=== PATIENT | male | born 1950 | race Caucasian/White ===

== ENCOUNTER → 2016-08-04 | Outpatient (CLI) | payer OTHER ==
[~2016-08-04] MED LIST: CLTP PO; DBT/5 PO; DOCU-94 PO; ESCI10TA17 PO; FIBER PO; GABA-113 PO; GLC500 PO; LISI40TA PO; METO25TA3 PO; NAPR-201 PO; SIMV20TA2 PO; SIMV40TA2 PO; [UNRECOGNIZED DRUG - OTHER]
[2016-08-04 12:47] LABS: BASO % 0.6 %; BASO ABS # 0.06 K/uL (0-0.2); COMPLETE YES; EOS % 2.9 %; IG% 0.6 %; LYMPH % 23.7 %; LYMPH ABS # 2.39 K/uL (1.2-3.4); MEAN CELL VOLUME 90.2 fL (80-100); MEAN CORPUSCULAR HEMOGLOBIN 32.5 pg (25-34); MEAN CORPUSCULAR HGB CONC 36.1 g/dl (32-36); MEAN PLATELET VOLUME 10.1 fL (7.4-10.4); MONO % 7.1 %; NEUT % 65.1 %; PLATELET COUNT 288 K/uL (130-400)
[2016-08-04 12:57] LABS: ALT/SGPT 56 U/L (12-78); AST/SGOT 15 U/L (15-37); BLOOD UREA NITROGEN 17 mg/dl (7-18); CALCIUM 9.2 mg/dl (8.5-10.1); CARBON DIOXIDE 27 mmol/L (21-32); CHLORIDE 101 mmol/L (98-107); GLUCOSE 330 mg/dl (70-99); POTASSIUM 4.5 mmol/L (3.5-5.1); SODIUM 137 mmol/L (136-145)
[2016-08-04 13:03] LABS: ALB/GLOB RATIO 1.1 (0.9-2); ALKALINE PHOSPHATASE 55 U/L (45-117); CHOLESTEROL 156 mg/dl (0-200); HDL CHOLESTEROL 31 mg/dl; LDL CHOLESTEROL CALCULATED 72 mg/dl; TRIGLYCERIDES 267 mg/dl (0-150); VERY LOW DENSITY LIPOPROT CALC 53 mg/dl
[2016-08-04 13:10] LABS: BETA-HYDROXYBUTYRATE 3.03 mg/dL (0.2-2.81)
[2016-08-04 13:26] LABS: ESTIMATED AVERAGE GLUCOSE 240 mg/dl; HA1C FLAG Normal (Normal)
== END | disposition home or self-care (01) ==
LOC: C.LABBFT 09:46
PROVIDERS: ATTEND Physician Assistant Medical
DX: I10 Essential (primary) hypertension (principal)

== ENCOUNTER → 2016-09-03 | Outpatient (CLI) | payer OTHER ==
[2016-09-03 09:06] VITALS: BP 139/84; PULSE 56; TEMP 36.6; O2SAT 97
--- NOTE | 2016-09-03 10:49 | Radiation Oncology Follow-Up ---
Radiation Oncology Follow-Up Date of Visit Sep 03, 2016. Reason For Visit Annual follow-up Radiation Completion Date finished IMRT / IGRT on 09-19-2007 , seed implant on 06-23-2008 Diagnosis (1) Prostate cancer Status: Resolved Onset Date: 2007 Stage: ll (B biopsy stage) Permanent Comment: Adenocarcinoma prostate, clinical stage TIc, presenting PSA 3.9 Biopsy stage TIIb, Pixley grade 3+3 and 3+4 Hormonal suppression 05/17/2007 through December 2007 Status post seed implant with cesium 131 on 06/23/2008 status post completion of IMRT/IGRT completed 09/19/2007 received 4500 cGy Last Edited By: Lien Cooper on Dec 04, 2014 15:44 Interim History He has been doing well over this past year. He completed an AUA score sheet. He gave a score of 1. An expanded prostate cancer index composite for clinical practice was completed and a score of 0 of 12 was given for urinary incontinence symptoms. A score of 0 of 12 and urinary irritation symptoms. A score of 0 of 12 and bowel symptoms. Score of 0 of 12 and hormonal vitality symptoms. Sexual section was not completed. His score is therefore 0 of 48. His forms were completed by the nurse reading the questions and him answering. The patient does not read. He does not require any medication to help with urination. Allergies Coded Allergies: No Known Allergies (Unverified , 10/15/10) Home Medications Scheduled Calcium/Vitamin D (Caltrate 600 Plus *), 2 TAB PO BID Docusate Sodium (Colace), 1 CAP PO DAILY Escitalopram (Lexapro), 10 MG PO DAILY Fiber Laxative (Fiber Laxative), 2 PO BID Gabapentin (Neurontin), 300 MG PO DHS Glyburide (Diabeta), 5 MG PO BID Lisinopril (Prinivil), 40 MG PO DAILY Metformin Hcl (Glucophage *), 1,000 MG PO BID Metoprolol Succ (Toprol Xl) (Toprol-Xl), 25 MG PO BID Naproxen (Naprosyn), 375 MG PO DAILY Simvastatin (Zocor), 40 MG PO QPM Review of Systems Gastrointestinal: Symptoms: WNL Oral: Symptoms: No Problems Respiratory: Symptoms: WNL Urinary: Symptoms: WNL Skin: Symptoms: No Problems Physical Exam Vital Signs Date Time Temp Pulse Resp B/P Pulse Ox O2 Delivery O2 Flow Rate FiO2 09/03/16 09:06 36.6 56 18 139/84 97 Pain: Side: Bilateral Patient Pain Scale: 0 - 10 Initial Pain Intensity: 0.0 Fatigue: None General Appearance: no apparent distress Eyes: normal inspection, EOMI ENT: normal ENT inspection Respiratory/Chest: lungs clear, no respiratory distress, no accessory muscle use Cardiovascular: regular rate, rhythm, no gallop, no murmur Abdomen: non tender, soft Extremities: no pedal edema Neurologic/Psychiatric: no motor/sensory deficits, alert, normal mood/affect Skin: warm/dry Laboratory Studies Test 08/04/16 09:48 09/03/16 09:18 White Blood Count 10.10 K/uL (4.8-10.8) Red Blood Count 5.10 M/uL (4.7-6.1) Hemoglobin 16.6 g/dL (14.0-18.0) Hematocrit 46.0 % (42-52) Mean Corpuscular Volume 90.2 fL (80-100) Mean Corpuscular Hemoglobin 32.5 pg (25-34) Mean Corpuscular Hemoglobin Concent 36.1 g/dl (32-36) Platelet Count 288 K/uL (130-400) Mean Platelet Volume 10.1 fL (7.4-10.4) Neutrophils (%) (Auto) 65.1 % Lymphocytes (%) (Auto) 23.7 % Monocytes (%) (Auto) 7.1 % Eosinophils (%) (Auto) 2.9 % Basophils (%) (Auto) 0.6 % Neutrophils # (Auto) 6.58 K/uL (1.4-6.5) Lymphocytes # (Auto) 2.39 K/uL (1.2-3.4) Monocytes # (Auto) 0.72 K/uL (0.11-0.59) Eosinophils # (Auto) 0.29 K/uL (0-0.5) Basophils # (Auto) 0.06 K/uL (0-0.2) RDW Standard Deviation 41.6 fL (36.4-46.3) RDW Coefficient of Variation 12.6 % (11.5-14.5) Immature Granulocyte % (Auto) 0.6 % Immature Granulocyte # (Auto) 0.06 K/uL (0.00-0.02) Sodium Level 137 mmol/L (136-145) Potassium Level 4.5 mmol/L (3.5-5.1) Chloride Level 101 mmol/L (98-107) Carbon Dioxide Level 27 mmol/L (21-32) Anion Gap 9.0 mmol/L (3-11) Blood Urea Nitrogen 17 mg/dl (7-18) Creatinine 1.30 mg/dl (0.60-1.40) Estimated GFR () 66.8 Estimated GFR (Non- 57.7 BUN/Creatinine Ratio 13.0 (10-20) Random Glucose 330 mg/dl (70-99) Estimated Average Glucose 240 mg/dl Hemoglobin A1c 10.0 % (4.5-5.6) Calcium Level 9.2 mg/dl (8.5-10.1) Total Bilirubin 0.6 mg/dl (0.2-1) Aspartate Amino Transferase (AST) 15 U/L (15-37) Alanine Aminotransferase (ALT) 56 U/L (12-78) Alkaline Phosphatase 55 U/L (45-117) Total Protein 7.4 gm/dl (6.4-8.2) Albumin 3.8 gm/dl (3.4-5.0) Globulin 3.6 gm/dl (2.5-4.0) Albumin/Globulin Ratio 1.1 (0.9-2) Triglycerides Level 267 mg/dl (0-150) Cholesterol Level 156 mg/dl (0-200) HDL Cholesterol 31 mg/dl LDL Cholesterol, Calculated 72 mg/dl VLDL Cholesterol, Calculated 53 mg/dl Cholesterol/HDL Ratio 5.0 Beta-Hydroxybutyric Acid 3.03 mg/dL (0.2-2.81) Prostate Specific Antigen < 0.010 ng/ml (0.000-4.000) Assessment & Plan Plan: The PSA was obtained today prior to examination. The patient will be notified as to results. He will continue regular follow-up with his primary care physician. He does not follow with urology and will therefore be asked to return to our office in 1 year. He may call if he has the questions or concerns in the interim. Total Time In Follow-Up I spent 20 minutes speaking to the patient performing examination. I spent 15 minutes reviewing information completing this note. Copy To Kristofer Oconnell M.D.
== END | disposition home or self-care (01) ==
LOC: C.ONC 08:53
PROVIDERS: ATTEND Physician Assistant Medical
DX: Z08 Encounter for follow-up examination after completed treatment for malignant neoplasm (principal); Z92.3 Personal history of irradiation; Z85.46 Personal history of malignant neoplasm of prostate

== ENCOUNTER → 2017-01-24 | Outpatient (CLI) | payer OTHER ==
[~2017-01-24] MED LIST changes: -SIMV20TA2 PO; -[UNRECOGNIZED DRUG - OTHER]
[2017-01-24 16:57] LABS: ALT/SGPT 55 U/L (12-78); BLOOD UREA NITROGEN 19 mg/dl (7-18); BUN/CREATININE RATIO 14.8 (10-20); CARBON DIOXIDE 26 mmol/L (21-32); CHLORIDE 104 mmol/L (98-107); CHOLESTEROL 118 mg/dl (0-200); GLUCOSE 196 mg/dl (70-99); POTASSIUM 4.2 mmol/L (3.5-5.1); SODIUM 138 mmol/L (136-145)
[2017-01-24 17:00] LABS: BASO % 0.7 %; BASO ABS # 0.05 K/uL (0-0.2); COMPLETE YES; EOS % 1.6 %; HEMATOCRIT 43.9 % (42-52); IG% 0.4 %; LYMPH % 25.6 %; LYMPH ABS # 1.74 K/uL (1.2-3.4); MEAN CELL VOLUME 89.2 fL (80-100); MEAN CORPUSCULAR HEMOGLOBIN 32.5 pg (25-34); MEAN CORPUSCULAR HGB CONC 36.4 g/dl (32-36); MEAN PLATELET VOLUME 9.6 fL (7.4-10.4); MONO % 18.2 %; NEUT % 53.5 %; PLATELET COUNT 210 K/uL (130-400); RED BLOOD COUNT 4.92 M/uL (4.7-6.1)
[2017-01-24 17:07] LABS: ALKALINE PHOSPHATASE 50 U/L (45-117); AST/SGOT 22 U/L (15-37); CHOLESTEROL/HDL RATIO 3.8; HDL CHOLESTEROL 31 mg/dl; LDL CHOLESTEROL CALCULATED 54 mg/dl; TRIGLYCERIDES 165 mg/dl (0-150); VERY LOW DENSITY LIPOPROT CALC 33 mg/dl
[2017-01-24 17:34] LABS: RATIO 6.9 mcg/mg (0-30.0)
[2017-01-25 06:11] LABS: ESTIMATED AVERAGE GLUCOSE 180 mg/dl; HA1C FLAG Normal (Normal)
== END | disposition home or self-care (01) ==
LOC: C.LABBFT 14:06
PROVIDERS: ATTEND Internal Medicine
DX: E11.65 Type 2 diabetes mellitus with hyperglycemia (principal)

== ENCOUNTER → 2017-09-07 | Outpatient (CLI) | payer OTHER ==
[2017-09-07 13:10] VITALS: BP 154/81; PULSE 52; TEMP 36.6; O2SAT 96
--- NOTE | 2017-09-07 14:04 | Radiation Oncology Follow-Up ---
Radiation Oncology Follow-Up Date of Visit Sep 07, 2017. Reason For Visit Annual follow-up Radiation Completion Date IGRT 09/19/07, 06/23/08 IMRT Diagnosis (1) Prostate cancer Status: Resolved Onset Date: 2007 Stage: ll (Biopsy stage) Permanent Comment: Adenocarcinoma prostate, clinical stage TIc, presenting PSA 3.9 Biopsy stage TIIb, Ramsey grade 3+3 and 3+4 Hormonal suppression 05/17/2007 through December 2007 Status post seed implant with cesium 131 on 06/23/2008 status post completion of IMRT/IGRT completed 09/19/2007 received 4500 cGy Last Edited By: Lien Cooper on Dec 04, 2014 15:44 Interim History He has been doing well over this past year from urinary status. He gave an AUA score of 4. He completed and expanded prostate cancer index composite for clinical practice and gave a score of 0 of 12 and urinary incontinence symptoms. He gave a score of 1 of 12 and urinary irritation symptoms. He gave a score of 0 12 and bowel symptoms. He gave a score 0 of 12 in sexual symptoms. He gives score of 0 of 12 and hormonal vitality symptoms. His total was 1 of 60. He does not require any medication to help with urination. His last PSA was last year at this time and was less than 0.010. Allergies Coded Allergies: No Known Allergies (Unverified , 10/15/10) Home Medications Scheduled Escitalopram (Lexapro), 10 MG PO DAILY Gabapentin (Neurontin), 300 MG PO DHS Glyburide (Diabeta), 5 MG PO BID Lisinopril (Prinivil), 40 MG PO DAILY Metformin Hcl (Glucophage *), 1,000 MG PO BID Metoprolol Succ (Toprol Xl) (Toprol-Xl), 25 MG PO BID Simvastatin (Zocor), 40 MG PO QPM Review of Systems Gastrointestinal: Symptoms: WNL Oral: Symptoms: No Problems Respiratory: Symptoms: WNL Urinary: Symptoms: Nocturia Comments: nocturia 0-1x Skin: Symptoms: No Problems Physical Exam Vital Signs Date Time Temp Pulse Resp B/P (MAP) Pulse Ox O2 Delivery O2 Flow Rate FiO2 09/07/17 13:10 36.6 52 16 154/81 96 Fatigue: None General Appearance: no apparent distress Eyes: normal inspection, EOMI ENT: normal ENT inspection, hearing grossly normal Neck: no adenopathy, thyroid normal Respiratory/Chest: lungs clear, no respiratory distress, no accessory muscle use Cardiovascular: regular rate, rhythm, no gallop, no murmur Abdomen: non tender, soft Anal / Rectum: Normal sphincter tone. Internal and external hemorrhoids. No rectal masses and no rectal bleeding. Prostate consistent with a seed implant. Extremities: no pedal edema Neurologic/Psychiatric: no motor/sensory deficits, alert, normal mood/affect Skin: warm/dry Pain Management Patient Reports Pain: No Initial Pain Intensity: 0.0 Pain Management Plan He denied pain therefore requires no pain management. Laboratory Laboratory Results: were reviewed, pending Laboratory Comments: Reviewed in the interim history Pathology Pathology Results: not applicable Imaging Imaging Studies: not applicable Assessment & Plan Plan: Continue regular follow-up with his primary care provider. He does not follow with urology. We therefore asked him to return to our office in 1 year. We will obtain a PSA at that time. PSA was drawn today prior to his examination. He will be notified as to the results. He may call our office if he has any questions or concerns in the interim. Total Time In Follow-Up I spent 20 minutes speaking to the patient and performing examination. I spent 15 minutes reviewing information and completing this note. Copy To Kristofer Oconnell M.D.
== END | disposition home or self-care (01) ==
LOC: C.ONC 12:31
PROVIDERS: ATTEND Physician Assistant Medical
DX: Z08 Encounter for follow-up examination after completed treatment for malignant neoplasm (principal); Z92.3 Personal history of irradiation; Z85.46 Personal history of malignant neoplasm of prostate